=== PATIENT | female | born 1955 | race Caucasian/White ===

== ENCOUNTER → 2018-04-27 | Outpatient (CLI) | payer OTHER ==
[~2018-04-27] MED LIST: ANASTROZOLE1 M1 PO; B121000 MCG/1 IM; BUSPAR15 MG PO; CITALOPRAM HYDR40 MG PO; DIALYVITE V5000 UNIT PO; ELIQUIS5 M1 PO; OMEPRAZOLE40 MG PO; VENTOLIN 02.5 MG/3 M INH; ZESTORETIC 10-1 EACH PO
== END | disposition home or self-care (01) ==
LOC: RAD 10:48
DX: Z13.820 Encounter for screening for osteoporosis (principal); Z90.710 Acquired absence of both cervix and uterus; Z78.0 Asymptomatic menopausal state

== ENCOUNTER → 2018-05-14 | Outpatient (CLI) | payer OTHER | END | disposition home or self-care (01) | LOC: NM 09:48 | DX: M47.817 Spondylosis without myelopathy or radiculopathy, lumbosacral region (principal); M19.012 Primary osteoarthritis, left shoulder; M19.011 Primary osteoarthritis, right shoulder; M19.072 Primary osteoarthritis, left ankle and foot; M19.071 Primary osteoarthritis, right ankle and foot; M17.0 Bilateral primary osteoarthritis of knee; J44.9 Chronic obstructive pulmonary disease, unspecified; I10 Essential (primary) hypertension; M48.00 Spinal stenosis, site unspecified; C50.211 Malignant neoplasm of upper-inner quadrant of right female breast; I82.409 Acute embolism and thrombosis of unspecified deep veins of unspecified lower extremity; F32.9 Major depressive disorder, single episode, unspecified; I26.99 Other pulmonary embolism without acute cor pulmonale ==

== ENCOUNTER → 2018-07-01 | Day surgery (SDC) | payer OTHER ==
[~2018-07-01] VITALS: Ht 170.1 cm; Wt 134.3 kg
--- NOTE | ~2018-07-01 | O ---
[place], [place] OPERATIVE NOTE NAME: JOSE LUIS OBRIEN UNIT #: [id number] ROOM: DOCTOR: JEREL BRENNER MD BIRTHDATE: [birth year] DOS: 07/01/2018 GASTROENDOSCOPIC REPORT HISTORY OF PRESENT ILLNESS: The patient has presented with history of breast cancer, history of colonic polyp in the past, past medical history also associated COPD. ALLERGIES: IVP DYE, SHELLFISH. FAMILY HISTORY: Noncontributory. PAST SURGICAL HISTORY: Carpal tunnel, right breast and hysterectomy. PAST MEDICAL HISTORY: Pulmonary embolism, breast CA, hypertension, obesity. SOCIAL HISTORY: Active smoker. PROCEDURE: Today's procedure part of investigation is colonoscopy plus piecemeal polypectomy. PREMEDICATION: Propofol. SCOPE: Olympus forward-viewing colonoscope 10L video. REPORT: After putting the patient in left lateral position and application of lubricant to the scope, the scope was introduced. Thereafter, under direct visualization, I advanced through the length of colon without difficulty. Base of the cecum explored, appendiceal orifice was identified. Ileocecal valve was defined. Scope was gradually withdrawn from ascending, transverse, and descending colon. In the sigmoid colon, a sessile polyp with lesion, piecemeal polypectomy removed. No active pathology otherwise identified. The patient extubated, tolerated the procedure well. IMPRESSION: Sessile colonic polyp, sigmoid colon, status post piecemeal polypectomy. PLAN AND DISCUSSION: High fiber diet. The patient was advised to abstain from smoking. The patient to follow up with you routinely in the office, p.r.n. visit with us in [facility]. Thank you very much indeed. [place], [place] OPERATIVE NOTE NAME: JOSE LUIS OBRIEN UNIT #: [id number] ROOM: DOCTOR: JEREL BRENNER MD BIRTHDATE: [birth year] JEREL BRENNER MD CM:OPRECORD:OPERATIVE NOTE 6 JEREL BRENNER MD 07/01/18946 interface
[2018-07-01 08:15] VITALS: BP 95/60
[2018-07-01 09:10] VITALS: BP 102/48
[2018-07-01 09:25] VITALS: BP 104/56
[2018-07-01 09:30] VITALS: BP 98/53
== END | disposition home or self-care (01) ==
LOC: SDC 06-29 08:45
DX: K63.5 Polyp of colon (principal); I10 Essential (primary) hypertension; E11.9 Type 2 diabetes mellitus without complications; J43.9 Emphysema, unspecified; F41.9 Anxiety disorder, unspecified; F32.9 Major depressive disorder, single episode, unspecified; G47.30 Sleep apnea, unspecified; F17.210 Nicotine dependence, cigarettes, uncomplicated; E66.01 Morbid (severe) obesity due to excess calories; Z68.42 Body mass index [BMI] 45.0-49.9, adult; Z91.041 Radiographic dye allergy status; Z91.011 Allergy to milk products; Z91.013 Allergy to seafood; Z88.3 Allergy status to other anti-infective agents; Z90.710 Acquired absence of both cervix and uterus; Z98.890 Other specified postprocedural states; Z86.711 Personal history of pulmonary embolism; Z85.3 Personal history of malignant neoplasm of breast; Z86.010 Personal history of colon polyps; Z79.01 Long term (current) use of anticoagulants; Z79.899 Other long term (current) drug therapy; Z82.49 Family history of ischemic heart disease and other diseases of the circulatory system

== ENCOUNTER → 2019-04-29 | Outpatient (CLI) | payer OTHER | END | disposition home or self-care (01) | LOC: MAMMO 04-21 09:00 | DX: C50.211 Malignant neoplasm of upper-inner quadrant of right female breast (principal); I82.409 Acute embolism and thrombosis of unspecified deep veins of unspecified lower extremity; I26.99 Other pulmonary embolism without acute cor pulmonale; Z79.811 Long term (current) use of aromatase inhibitors; Z79.01 Long term (current) use of anticoagulants ==

== ENCOUNTER → 2019-06-25 | Outpatient (CLI) | payer OTHER | END | disposition home or self-care (01) | LOC: CT 11:00 | DX: I26.99 Other pulmonary embolism without acute cor pulmonale (principal); C50.211 Malignant neoplasm of upper-inner quadrant of right female breast; I82.409 Acute embolism and thrombosis of unspecified deep veins of unspecified lower extremity; I25.10 Atherosclerotic heart disease of native coronary artery without angina pectoris; Z79.811 Long term (current) use of aromatase inhibitors; Z79.01 Long term (current) use of anticoagulants ==

== ENCOUNTER → 2020-05-09 | Outpatient (CLI) | payer OTHER ==
[2020-05-09 14:53] LABS: BILIRUBIN Negative (Negative); BLOOD Trace-Lysed (Negative); CLARITY Cloudy (Clear); COLOR Yellow (Yellow); GLUCOSE Negative (Negative); KETONE Trace (Negative); LEUKO ESTERASE Negative (Negative); NITRITE Negative (Negative); PH 5.5 (4.5-8.0)
[2020-05-09 14:54] LABS: BASO # 0.1 10*3/uL (0.0-0.1); BASO % 0.9 % (0.0-1.0); EOS # 0.4 10*3/uL (0.0-0.4); EOS % 3.8 % (1.0-4.0); LYMPH % 19.2 % (27.0-41.0); MEAN CELL VOLUME 90.6 fl (81.0-99.0); MEAN CORPUSCULAR HGB 30.3 pg (27.0-31.0); MEAN CORPUSCULAR HGB CONC 33.4 g/dl (33.0-37.0); MEAN PLATELET VOLUME 8.3 fl (9.6-12.3); MONO # 0.9 10*3/uL (0.1-1.0); MONO % 9.3 % (3.0-9.0); NEUT # 6.8 10*3/uL (2.3-7.9); NEUT % 66.5 % (47.0-73.0); PLATELET COUNT AUTOMATED 302 10*3/uL (130-400); RED BLOOD COUNT 5.19 10*6/uL (4.10-5.10); RETICULOCYTE % 1.18 % (0.50-2.50); WHITE BLOOD COUNT 10.2 10*3/uL (4.8-10.8)
[2020-05-09 14:58] LABS: BACTERIA 2+
[2020-05-09 15:23] LABS: ALBUMIN 3.5 gm/dl (3.1-4.5); ALKALINE PHOSPHATASE 141 U/L (45-117); BUN 18 mg/dl (7-24); CHLORIDE 108 mmol/L (98-107); CHOLESTEROL 222 mg/dL (<200); CPK 84 U/L (26-192); CREATININE 0.95 mg/dL (0.55-1.02); GAMMA GLUTAMYL TRANSPEPTIDASE 23 U/L (5-55); HDL CHOLESTEROL 47 mg/dl (40-60); IRON 50 ug/dL (50-170); LDL CHOLESTEROL 150 mg/dL (9-159); POTASSIUM 4.2 mmol/L (3.5-5.1); SGOT/AST 8 IU/L (3-35); SGPT/ALT 21 U/L (12-78); SODIUM 139 mmol/L (136-145); TOTAL IRON BINDING CAPACITY 343 ug/dl (250-450); TOTAL PROTEIN 7.4 gm/dL (6.4-8.2); TRIGLYCERIDES 127 mg/dl (<150); VLDL CHOLESTEROL 25 mg/dL (6-40)
[2020-05-09 15:28] LABS: VITAMIN D, 25-HYDROXY 64.9 ng/mL (30-100)
== END | disposition home or self-care (01) ==
LOC: LAB 13:19 → RAD 13:30 → MAMMO 14:00
PROVIDERS: Family Medicine; ATTEND Internal Medicine Hematology & Oncology
DX: I82.409 Acute embolism and thrombosis of unspecified deep veins of unspecified lower extremity (principal); I26.99 Other pulmonary embolism without acute cor pulmonale; R53.83 Other fatigue; R79.89 Other specified abnormal findings of blood chemistry; C50.211 Malignant neoplasm of upper-inner quadrant of right female breast; Z79.811 Long term (current) use of aromatase inhibitors; Z79.01 Long term (current) use of anticoagulants; Z78.0 Asymptomatic menopausal state

== ENCOUNTER → 2020-06-07 | Outpatient (CLI) | payer OTHER | END | disposition home or self-care (01) | LOC: CT 09:47 | PROVIDERS: ATTEND Urology | DX: J98.4 Other disorders of lung (principal); R31.9 Hematuria, unspecified; J44.9 Chronic obstructive pulmonary disease, unspecified; C50.919 Malignant neoplasm of unspecified site of unspecified female breast; M48.00 Spinal stenosis, site unspecified; I10 Essential (primary) hypertension; F32.9 Major depressive disorder, single episode, unspecified; C50.211 Malignant neoplasm of upper-inner quadrant of right female breast; I82.409 Acute embolism and thrombosis of unspecified deep veins of unspecified lower extremity; I26.99 Other pulmonary embolism without acute cor pulmonale; Z79.811 Long term (current) use of aromatase inhibitors; Z79.01 Long term (current) use of anticoagulants; Z78.0 Asymptomatic menopausal state ==

== ENCOUNTER → 2020-12-14 | Outpatient (CLI) | payer OTHER | END | disposition home or self-care (01) | LOC: COVID19 14:54 | PROVIDERS: ATTEND Podiatrist Foot & Ankle Surgery | DX: Z11.52 Encounter for screening for COVID-19 (principal) ==

== ENCOUNTER → 2021-05-16 | Outpatient (CLI) | payer OTHER ==
[2021-05-16 14:20] LABS: BUN 12 mg/dl (7-24); CHLORIDE 106 mmol/L (98-107); CREATININE 0.92 mg/dL (0.55-1.02); POTASSIUM 4.9 mmol/L (3.5-5.1); SODIUM 138 mmol/L (136-145)
== END | disposition home or self-care (01) ==
LOC: LAB 12:27 → MAMMO 13:00
PROVIDERS: Internal Medicine Cardiovascular Disease; ATTEND Internal Medicine
DX: C50.211 Malignant neoplasm of upper-inner quadrant of right female breast (principal); I26.99 Other pulmonary embolism without acute cor pulmonale; Z79.811 Long term (current) use of aromatase inhibitors; Z79.01 Long term (current) use of anticoagulants; Z78.0 Asymptomatic menopausal state; I95.1 Orthostatic hypotension; I82.409 Acute embolism and thrombosis of unspecified deep veins of unspecified lower extremity; I25.10 Atherosclerotic heart disease of native coronary artery without angina pectoris; Z80.3 Family history of malignant neoplasm of breast

== ENCOUNTER → 2021-05-30 | Outpatient (CLI) | payer OTHER ==
[2021-05-30 12:29] LABS: BASO # 0.1 10*3/uL (0.0-0.1); BASO % 0.8 % (0.0-1.0); EOS # 0.3 10*3/uL (0.0-0.4); HEMATOCRIT 43.6 % (37.0-47.0); LYMPH % 24.4 % (27.0-41.0); MEAN CELL VOLUME 93.6 fl (81.0-99.0); MEAN CORPUSCULAR HGB 31.8 pg (27.0-31.0); MEAN CORPUSCULAR HGB CONC 33.9 g/dl (33.0-37.0); MEAN PLATELET VOLUME 8.7 fl (9.6-12.3); MONO # 0.8 10*3/uL (0.1-1.0); NEUT % 60.3 % (47.0-73.0); PLATELET COUNT AUTOMATED 282 10*3/uL (130-400); RED BLOOD COUNT 4.66 10*6/uL (4.10-5.10); RED CELL DISTRI WIDTH 13.6 % (0-14.5); RETICULOCYTE % 1.72 % (0.50-2.50); WHITE BLOOD COUNT 8.3 10*3/uL (4.8-10.8)
[2021-05-30 12:49] LABS: CHLORIDE 109 mmol/L (98-107); POTASSIUM 4.6 mmol/L (3.5-5.1); SODIUM 138 mmol/L (136-145)
[2021-05-30 13:03] LABS: ALKALINE PHOSPHATASE 96 U/L (45-117); BUN 18 mg/dl (7-24); CHOLESTEROL 174 mg/dL (<200); CREATININE 0.86 mg/dL (0.55-1.02); GAMMA GLUTAMYL TRANSPEPTIDASE 29 U/L (5-55); IRON 94 ug/dL (50-170); LDL CHOLESTEROL 87 mg/dL (9-159); SGOT/AST 17 IU/L (3-35); SGPT/ALT 25 U/L (12-78); TOTAL IRON BINDING CAPACITY 300 ug/dl (250-450); TOTAL PROTEIN 7.4 gm/dL (6.4-8.2); TRIGLYCERIDES 215 mg/dl (<150)
[2021-05-30 13:27] LABS: FERRITIN 47.4 ng/mL (10.0-291.0); VITAMIN D, 25-HYDROXY 50.9 ng/mL (30-100)
== END | disposition home or self-care (01) ==
LOC: LAB 11:22
PROVIDERS: ATTEND Family Medicine
DX: J43.9 Emphysema, unspecified (principal); R79.89 Other specified abnormal findings of blood chemistry; R53.83 Other fatigue; E78.5 Hyperlipidemia, unspecified; E55.9 Vitamin D deficiency, unspecified

== ENCOUNTER → 2022-04-24 | Outpatient (CLI) | payer OTHER ==
[2022-04-24 14:34] LABS: BASO # 0.1 10*3/uL (0.0-0.1); EOS # 0.4 10*3/uL (0.0-0.4); EOS % 4.3 % (1.0-4.0); HEMATOCRIT 41.7 % (37.0-47.0); LYMPH # 1.8 10*3/uL (1.3-4.4); LYMPH % 17.8 % (27.0-41.0); MEAN CELL VOLUME 93.7 fl (81.0-99.0); MEAN CORPUSCULAR HGB 31.7 pg (27.0-31.0); MEAN CORPUSCULAR HGB CONC 33.8 g/dl (33.0-37.0); MEAN PLATELET VOLUME 8.7 fl (9.6-12.3); MONO # 0.9 10*3/uL (0.1-1.0); MONO % 8.5 % (3.0-9.0); NEUT # 7.1 10*3/uL (2.3-7.9); PLATELET COUNT AUTOMATED 251 10*3/uL (130-400); RED BLOOD COUNT 4.45 10*6/uL (4.10-5.10); RED CELL DISTRI WIDTH 13.4 % (0-14.5); WHITE BLOOD COUNT 10.4 10*3/uL (4.8-10.8)
[2022-04-24 14:52] LABS: ALKALINE PHOSPHATASE 99 U/L (46-116); BUN 17 mg/dl (9-23); CHLORIDE 109 mmol/L (98-107); CHOLESTEROL 192 mg/dL (<200); GAMMA GLUTAMYL TRANSPEPTIDASE 27 U/L (0-73); LDL CHOLESTEROL 122 mg/dL (9-159); POTASSIUM 4.3 mmol/L (3.4-5.1); SGPT/ALT 19 U/L (10-49); THYROID STIM HORMONE (HS) 2.659 uIU/ml (0.550-4.780); TOTAL PROTEIN 6.4 gm/dL (6.0-8.0); TRIGLYCERIDES 130 mg/dl (<150)
[2022-04-24 15:13] LABS: VITAMIN D, 25-HYDROXY 48.9 ng/mL (30-100)
== END | disposition home or self-care (01) ==
LOC: LAB 00:29 → MAMMO 08:00
PROVIDERS: ATTEND Family Medicine
DX: R92.1 Mammographic calcification found on diagnostic imaging of breast (principal); C50.919 Malignant neoplasm of unspecified site of unspecified female breast; R79.89 Other specified abnormal findings of blood chemistry; R53.83 Other fatigue; E78.5 Hyperlipidemia, unspecified; R74.8 Abnormal levels of other serum enzymes; E55.9 Vitamin D deficiency, unspecified; Z98.890 Other specified postprocedural states

== ENCOUNTER → 2023-07-24 | Outpatient (CLI) | payer OTHER | END | disposition home or self-care (01) | LOC: LAB 18:13 | PROVIDERS: ATTEND Nurse Practitioner Family | DX: R30.0 Dysuria (principal) ==

== ENCOUNTER → 2023-08-29 | Outpatient (CLI) | payer OTHER ==
[2023-08-29 14:07] LABS: BASO # 0.1 10*3/uL (0.0-0.1); BASO % 0.6 % (0.0-1.0); EOS # 0.4 10*3/uL (0.0-0.4); EOS % 4.5 % (1.0-4.0); HEMATOCRIT 42.9 % (37.0-47.0); LYMPH # 1.7 10*3/uL (1.3-4.4); LYMPH % 18.2 % (27.0-41.0); MEAN CELL VOLUME 87.9 fl (81.0-99.0); MEAN CORPUSCULAR HGB 28.5 pg (27.0-31.0); MEAN CORPUSCULAR HGB CONC 32.4 g/dl (33.0-37.0); MEAN PLATELET VOLUME 8.3 fl (9.6-12.3); MONO # 0.7 10*3/uL (0.1-1.0); MONO % 7.5 % (3.0-9.0); NEUT # 6.4 10*3/uL (2.3-7.9); NEUT % 68.9 % (47.0-73.0); PLATELET COUNT AUTOMATED 294 10*3/uL (130-400); RED BLOOD COUNT 4.88 10*6/uL (4.10-5.10); RED CELL DISTRI WIDTH 14.1 % (0-14.5); WHITE BLOOD COUNT 9.3 10*3/uL (4.8-10.8)
[2023-08-29 14:28] LABS: ALKALINE PHOSPHATASE 122 U/L (46-116); BUN 12 mg/dl (9-23); CHLORIDE 107 mmol/L (98-107); CHOLESTEROL 195 mg/dL (<200); LDL CHOLESTEROL 119 mg/dL (9-159); POTASSIUM 4.4 mmol/L (3.4-5.1); SGPT/ALT 15 U/L (5-49); TOTAL PROTEIN 6.7 gm/dL (6.0-8.0); TRIGLYCERIDES 173 mg/dl (<150)
== END | disposition home or self-care (01) ==
LOC: LAB 13:40
PROVIDERS: ATTEND Nurse Practitioner Family
DX: M47.816 Spondylosis without myelopathy or radiculopathy, lumbar region (principal); M41.86 Other forms of scoliosis, lumbar region; M16.0 Bilateral primary osteoarthritis of hip; I10 Essential (primary) hypertension; G89.4 Chronic pain syndrome; Z85.3 Personal history of malignant neoplasm of breast; M25.551 Pain in right hip; R30.0 Dysuria; M25.552 Pain in left hip

== ENCOUNTER → 2023-09-11 | Outpatient (CLI) | payer OTHER | END | disposition home or self-care (01) | LOC: LAB 14:43 | PROVIDERS: ATTEND Nurse Practitioner Family | DX: I10 Essential (primary) hypertension (principal); E78.5 Hyperlipidemia, unspecified; E13.69 Other specified diabetes mellitus with other specified complication; R93.89 Abnormal findings on diagnostic imaging of other specified body structures; Z85.3 Personal history of malignant neoplasm of breast ==

== ENCOUNTER → 2023-09-15 | Outpatient (CLI) | payer OTHER ==
[~2023-09-15] MED LIST changes: +Technetium Tc 99M Medronate 1 KIT KIT IV SCH
== END | disposition home or self-care (01) ==
LOC: NM 01:20
PROVIDERS: ATTEND Nurse Practitioner Family
DX: M25.551 Pain in right hip (principal); R93.89 Abnormal findings on diagnostic imaging of other specified body structures; I10 Essential (primary) hypertension; E11.9 Type 2 diabetes mellitus without complications; M54.50 Low back pain, unspecified

== ENCOUNTER → 2023-09-30 | Outpatient (CLI) | payer OTHER ==
[~2023-09-30] MED LIST changes: -Technetium Tc 99M Medronate 1 KIT KIT IV SCH
== END | disposition home or self-care (01) ==
LOC: MAMMO 15:43
PROVIDERS: ATTEND Nurse Practitioner Family
DX: Z85.3 Personal history of malignant neoplasm of breast (principal)

== ENCOUNTER → 2023-11-14 | Outpatient (CLI) | payer OTHER ==
[2023-11-14 15:06] LABS: BASO # 0.1 10*3/uL (0.0-0.1); BASO % 0.8 % (0.0-1.0); EOS # 0.4 10*3/uL (0.0-0.4); EOS % 4.1 % (1.0-4.0); LYMPH % 21.5 % (27.0-41.0); MEAN CELL VOLUME 89.9 fl (81.0-99.0); MEAN CORPUSCULAR HGB 28.9 pg (27.0-31.0); MEAN CORPUSCULAR HGB CONC 32.2 g/dl (33.0-37.0); MEAN PLATELET VOLUME 8.5 fl (9.6-12.3); MONO # 0.7 10*3/uL (0.1-1.0); MONO % 7.6 % (3.0-9.0); NEUT # 5.9 10*3/uL (2.3-7.9); NEUT % 65.4 % (47.0-73.0); PLATELET COUNT AUTOMATED 305 10*3/uL (130-400); RED BLOOD COUNT 4.56 10*6/uL (4.10-5.10); RED CELL DISTRI WIDTH 14.3 % (0-14.5); WHITE BLOOD COUNT 9.1 10*3/uL (4.8-10.8)
[2023-11-14 15:26] LABS: ALKALINE PHOSPHATASE 119 U/L (46-116); BUN 19 mg/dl (9-23); CHLORIDE 106 mmol/L (98-107); CHOLESTEROL 197 mg/dL (<200); LDL CHOLESTEROL 114 mg/dL (9-159); SGPT/ALT 12 U/L (5-49); TOTAL PROTEIN 6.4 gm/dL (6.0-8.0); TRIGLYCERIDES 224 mg/dl (<150)
== END | disposition home or self-care (01) ==
LOC: LAB 01:10 → RAD 10:00 → LAB 14:00 → RAD 14:00
PROVIDERS: ATTEND Nurse Practitioner Family
DX: Z13.820 Encounter for screening for osteoporosis (principal); I10 Essential (primary) hypertension; G89.4 Chronic pain syndrome; Z85.3 Personal history of malignant neoplasm of breast; Z79.899 Other long term (current) drug therapy; Z78.0 Asymptomatic menopausal state

== ENCOUNTER 2024-01-18 10:28 | Inpatient (IN) | payer OTHER ==
[~2024-01-18] VITALS: Ht 170.2 cm; Wt 124.8 kg
[~2024-01-18 10:28] MED LIST changes: +BELBUCA300 MCG BC; +CITALOPRAM40 MG PO; +ELIQUIS2.5 M1 PO; +GABAPENTIN400 MG PO; +LOPRESSOR50 M1 PO; +OMNICEF300 MG PO; +PLAVIX75 M1 PO; +PREVACID30 M2 PO; +TRULICITY0.75 MG/0. SC; +ZANAFLEX2 M2 PO; +ZESTRIL2.5 MG PO
[2024-01-18 10:35] VITALS: BP 125/44
[2024-01-18 11:07] LABS: BASO % 0.4 % (0.0-1.0); EOS # 0.3 10*3/uL (0.0-0.4); EOS % 2.8 % (1.0-4.0); HEMATOCRIT 40.9 % (37.0-47.0); MEAN CELL VOLUME 90.9 fl (81.0-99.0); MEAN CORPUSCULAR HGB 29.3 pg (27.0-31.0); MEAN CORPUSCULAR HGB CONC 32.3 g/dl (33.0-37.0); MONO # 0.7 10*3/uL (0.1-1.0); MONO % 7.3 % (3.0-9.0); NEUT # 6.8 10*3/uL (2.3-7.9); NEUT % 75.8 % (47.0-73.0); PLATELET COUNT AUTOMATED 343 10*3/uL (130-400); RED CELL DISTRI WIDTH 13.2 % (0-14.5)
[2024-01-18 11:23] LABS: BUN 24 mg/dl (9-23); CHLORIDE 104 mmol/L (98-107); POTASSIUM 3.9 mmol/L (3.4-5.1)
[2024-01-18] MEDS ORDERED: MORPHINE Sulfate 2 MG/ML SYR IV ONE (11:50)
[2024-01-18 13:21] LABS: BILIRUBIN Negative (Negative); BLOOD 3+ (Negative); CLARITY Turbid (Clear); COLOR Orange (Yellow); GLUCOSE Negative (Negative); KETONE 1+ (Negative); LEUKO ESTERASE 1+ (Negative); NITRITE Negative (Negative); PH 5.5 (4.5-8.0); SPECIFIC GRAVITY >= 1.030 (1.001-1.030)
[2024-01-18] MEDS ORDERED: Ceftriaxone Sodium 1 GM/10 ML SYR IV ONE (13:25)
[2024-01-18 13:29] LABS: BACTERIA 1+; RBC 41-50 rbc/hpf (0-2)
[2024-01-18 13:30] LABS: EPITHELIAL CELLS 21-30
[2024-01-18] MEDS ORDERED: ACETAMINOPHEN 325 MG TAB PO PRN (14:00)
[2024-01-18] MEDS ORDERED: BISACODYL 5 MG TAB PO PRN (14:00)
[2024-01-18] MEDS ORDERED: Magnesium Hydroxide 30 ML UDC PO PRN (14:00)
[2024-01-18] MEDS ORDERED: Ondansetron Hydrochloride 4 MG/2 ML VIAL IV PRN (14:00)
[2024-01-18 14:12] VITALS: BP 118/57
[2024-01-18] MEDS ORDERED: Acetaminophen/Hydrocodone 5 MG/325 MG TABLET PO PRN (14:50)
[2024-01-18] MEDS ORDERED: DEXTROSE 10 % IN WATER 250 ML IV PRN (18:35)
[2024-01-18 21:31] VITALS: BP 121/64
[2024-01-18] MEDS ORDERED: INSULIN LISPRO 1 UNIT/0.01 ML SQ SCH (22:00)
[2024-01-18 23:57] VITALS: BP 128/77
[2024-01-19 05:32] LABS: BUN 21 mg/dl (9-23); CHLORIDE 104 mmol/L (98-107); FREE T4 1.26 ng/dl (0.89-1.76); POTASSIUM 3.5 mmol/L (3.4-5.1)
[2024-01-19 05:44] VITALS: BP 111/63
[2024-01-19] MEDS ORDERED: Pantoprazole Sodium 40 MG TAB PO SCH (06:00)
[2024-01-19 06:13] LABS: BASO % 0.5 % (0.0-1.0); EOS # 0.2 10*3/uL (0.0-0.4); EOS % 2.5 % (1.0-4.0); HEMATOCRIT 39.6 % (37.0-47.0); MEAN CELL VOLUME 91.7 fl (81.0-99.0); MEAN CORPUSCULAR HGB 29.9 pg (27.0-31.0); MEAN CORPUSCULAR HGB CONC 32.6 g/dl (33.0-37.0); MEAN PLATELET VOLUME 8.3 fl (9.6-12.3); MONO # 0.7 10*3/uL (0.1-1.0); MONO % 8.7 % (3.0-9.0); NEUT # 6.2 10*3/uL (2.3-7.9); NEUT % 72.5 % (47.0-73.0); PLATELET COUNT AUTOMATED 350 10*3/uL (130-400); RED BLOOD COUNT 4.32 10*6/uL (4.10-5.10); RED CELL DISTRI WIDTH 13.2 % (0-14.5); WHITE BLOOD COUNT 8.5 10*3/uL (4.8-10.8)
[2024-01-19 08:00] VITALS: BP 120/70
[2024-01-19] MEDS ORDERED: TIZANIDINE HYDROCHLORIDE 2 MG PO PRN (09:15)
[2024-01-19] MEDS ORDERED: CITALOPRAM 20 MG TAB PO SCH (10:00)
[2024-01-19] MEDS ORDERED: LISINOPRIL 2.5 MG TAB PO SCH (10:00)
[2024-01-19] MEDS ORDERED: Metoprolol Tartrate 50 MG TAB PO SCH (10:00)
[2024-01-19] MEDS ORDERED: APIXABAN 5 MG TAB PO SCH (10:00)
[2024-01-19] MEDS ORDERED: Clopidogrel Hydrogen Sulfate 75 MG TAB PO SCH (10:00)
[2024-01-19] MEDS ORDERED: Ceftriaxone Sodium 1 GM in SYRINGE INFUSION 10 ML IV SCH (13:00)
[2024-01-19] MEDS ORDERED: GABAPENTIN 400 MG CAP PO SCH (14:00)
[2024-01-19 16:17] VITALS: BP 117/66
[2024-01-19 20:00] VITALS: BP 136/75
[2024-01-19 20:15] VITALS: BP 107/71
[2024-01-19 20:45] VITALS: BP 136/75
[2024-01-19] MEDS ORDERED: MICONAZOLE NITRATE 2% 75 GM BOT T SCH (22:00)
[2024-01-19] MEDS ORDERED: MED. FROM HOME 1 EACH EA BC SCH (22:00)
[2024-01-20] VITALS: BP 140/80
[2024-01-20 08:00] VITALS: BP 185/57
[2024-01-20 12:00] VITALS: BP 132/73
[2024-01-20] MEDS ORDERED: AMMONIUM LACTATE 12% LOTION T SCH (13:10)
[2024-01-20 16:00] VITALS: BP 121/80
[2024-01-20 20:00] VITALS: BP 121/55
[2024-01-21] VITALS: BP 154/76
[2024-01-21 08:00] VITALS: BP 125/67
[2024-01-21] MEDS ORDERED: LIDOCAINE 1 EA PATCH T SCH (10:00)
[2024-01-21] MEDS ORDERED: DICLOFENAC SODIUM 100 GM TUBE T SCH (10:00)
[2024-01-21 12:00] VITALS: BP 117/69
[2024-01-21] MEDS ORDERED: GABAPENTIN 300 MG CAP PO SCH (14:00)
[2024-01-21] MEDS ORDERED: VOLTAREN ARTHRI20 GM T (15:13)
[2024-01-21] MEDS ORDERED: ANTIFUNGAL POWD85 G1 T (15:13)
[2024-01-21] MEDS ORDERED: BACITRACIN28.4 GM T (15:13)
[2024-01-21 16:00] VITALS: BP 141/79
[2024-01-21] MEDS ORDERED: ADHESIVE BANDAGE 1 EACH BANDAGE T ONE (17:25)
[2024-01-23] MEDS ORDERED: Bacitracin Zinc 14 GM TUBE T SCH (10:00)
== END 2024-01-21 17:52 | DRG 689 ==
LOC: ED 10:28 → EDHOLD 13:49 → 4E 01-19 16:44
PROVIDERS: ADMIT Internal Medicine; ATTEND Internal Medicine
PROC: 0HBRXZZ Excision of Toe Nail, External Approach (ICD-10-PCS; 2024-01-19)
PROC: 0HBRXZZ Excision of Toe Nail, External Approach (ICD-10-PCS; 2024-01-19)
PROC: 0HBRXZZ Excision of Toe Nail, External Approach (ICD-10-PCS; 2024-01-19)
PROC: 0HBRXZZ Excision of Toe Nail, External Approach (ICD-10-PCS; 2024-01-19)
PROC: 0HBRXZZ Excision of Toe Nail, External Approach (ICD-10-PCS; 2024-01-19)
PROC: 0HBRXZZ Excision of Toe Nail, External Approach (ICD-10-PCS; 2024-01-19)
PROC: 0HBRXZZ Excision of Toe Nail, External Approach (ICD-10-PCS; 2024-01-19)
PROC: 0HBRXZZ Excision of Toe Nail, External Approach (ICD-10-PCS; 2024-01-19)
PROC: 0HBRXZZ Excision of Toe Nail, External Approach (ICD-10-PCS; 2024-01-19)
PROC: 0HBRXZZ Excision of Toe Nail, External Approach (ICD-10-PCS; 2024-01-19)
PROC: 0HBLXZZ Excision of Left Lower Leg Skin, External Approach (ICD-10-PCS; principal; 2024-01-21)
DX: N30.00 Acute cystitis without hematuria (principal); G93.41 Metabolic encephalopathy; I48.11 Longstanding persistent atrial fibrillation; L03.116 Cellulitis of left lower limb; Z68.41 Body mass index [BMI] 40.0-44.9, adult; E11.40 Type 2 diabetes mellitus with diabetic neuropathy, unspecified; R62.7 Adult failure to thrive; R26.2 Difficulty in walking, not elsewhere classified; I10 Essential (primary) hypertension; J44.9 Chronic obstructive pulmonary disease, unspecified; I25.10 Atherosclerotic heart disease of native coronary artery without angina pectoris; Z95.5 Presence of coronary angioplasty implant and graft; Z91.041 Radiographic dye allergy status; Q84.5 Enlarged and hypertrophic nails; Z91.013 Allergy to seafood; Z79.899 Other long term (current) drug therapy

== ENCOUNTER 2024-03-18 09:39 | Inpatient (IN) | payer OTHER ==
[~2024-03-18] VITALS: Ht 170.1 cm; Wt 125.2 kg
[~2024-03-18 09:39] MED LIST changes: +ANTIFUNGAL POWD85 G1 T; +BACITRACIN28.4 GM T; +VOLTAREN ARTHRI20 GM T
[2024-03-18 09:48] VITALS: BP 138/63
[2024-03-18] MEDS ORDERED: LORazepam 1 MG TAB PO ONE (09:55)
[2024-03-18 10:09] LABS: BASO # 0.1 10*3/uL (0.0-0.1); BASO % 0.8 % (0.0-1.0); EOS # 0.2 10*3/uL (0.0-0.4); MEAN CELL VOLUME 88.9 fl (81.0-99.0); MEAN CORPUSCULAR HGB 28.7 pg (27.0-31.0); MEAN CORPUSCULAR HGB CONC 32.3 g/dl (33.0-37.0); MEAN PLATELET VOLUME 8.1 fl (9.6-12.3); MONO # 0.7 10*3/uL (0.1-1.0); MONO % 7.7 % (3.0-9.0); NEUT # 6.7 10*3/uL (2.3-7.9); NEUT % 75.9 % (47.0-73.0); PLATELET COUNT AUTOMATED 279 10*3/uL (130-400); RED CELL DISTRI WIDTH 13.9 % (0-14.5); WHITE BLOOD COUNT 8.8 10*3/uL (4.8-10.8)
[2024-03-18 10:31] LABS: BUN 14 mg/dl (9-23); CHLORIDE 104 mmol/L (98-107); POTASSIUM 3.8 mmol/L (3.4-5.1)
[2024-03-18 10:38] LABS: ACT PARTIAL THROMBO TIME 27.9 SECONDS (20.0-32.1)
[2024-03-18] MEDS ORDERED: VISTARIL25 MG PO (13:21)
[2024-03-18] MEDS ORDERED: BISACODYL 10 MG SUPP R PRN (15:45)
[2024-03-18] MEDS ORDERED: Magnesium Hydroxide 30 ML UDC PO PRN (15:45)
[2024-03-18] MEDS ORDERED: ACETAMINOPHEN 325 MG TAB PO PRN (15:45)
[2024-03-18] MEDS ORDERED: ACETAMINOPHEN 650 MG SUPP R PRN (15:45)
[2024-03-18] MEDS ORDERED: Acetaminophen/Hydrocodone 5 MG/325 MG TABLET PO PRN (15:45)
[2024-03-18] MEDS ORDERED: DEXTROSE 10 % IN WATER 250 ML IV PRN (15:45)
[2024-03-18] MEDS ORDERED: BISACODYL 5 MG TAB PO PRN (15:45)
[2024-03-18] MEDS ORDERED: Ondansetron Hydrochloride 4 MG/2 ML VIAL IV PRN (15:45)
[2024-03-18] MEDS ORDERED: OZEMPIC0.25 MG/03 SQ (16:08)
[2024-03-18] MEDS ORDERED: INSULIN LISPRO 1 UNIT/0.01 ML SQ SCH (16:30)
[2024-03-18 16:43] LABS: BILIRUBIN Negative (Negative); BLOOD Negative (Negative); CLARITY Cloudy (Clear); COLOR Yellow (Yellow); GLUCOSE Negative (Negative); KETONE Trace (Negative); LEUKO ESTERASE Negative (Negative); NITRITE Negative (Negative); PH 7.5 (4.5-8.0); SPECIFIC GRAVITY 1.015 (1.001-1.030); UROBILINOGEN 0.2 E.U./dl (0.0-1.0)
[2024-03-18 17:02] LABS: BACTERIA 1+; EPITHELIAL CELLS 21-30; FINE GRANULAR CAST 0-2; MUCOUS 1+; RBC 0-2 rbc/hpf (0-2)
[2024-03-18 18:36] VITALS: BP 148/69
[2024-03-18 21:03] VITALS: BP 140/83
[2024-03-18 21:50] VITALS: BP 150/74
[2024-03-18] MEDS ORDERED: APIXABAN 2.5 MG TABLET PO SCH (22:00)
[2024-03-19] VITALS: BP 148/70
[2024-03-19 06:08] LABS: ALKALINE PHOSPHATASE 113 U/L (46-116); BUN 13 mg/dl (9-23); CHLORIDE 102 mmol/L (98-107); POTASSIUM 3.7 mmol/L (3.4-5.1); SGPT/ALT 11 U/L (5-49); TOTAL PROTEIN 7.6 gm/dL (6.0-8.0)
[2024-03-19 06:19] LABS: BASO # 0.1 10*3/uL (0.0-0.1); BASO % 0.6 % (0.0-1.0); EOS # 0.1 10*3/uL (0.0-0.4); EOS % 0.7 % (1.0-4.0); HEMATOCRIT 44.2 % (37.0-47.0); MEAN CELL VOLUME 87.7 fl (81.0-99.0); MEAN PLATELET VOLUME 8.8 fl (9.6-12.3); MONO % 7.8 % (3.0-9.0); NEUT % 75.4 % (47.0-73.0); PLATELET COUNT AUTOMATED 306 10*3/uL (130-400); RED BLOOD COUNT 5.04 10*6/uL (4.10-5.10); RED CELL DISTRI WIDTH 13.7 % (0-14.5); WHITE BLOOD COUNT 13.3 10*3/uL (4.8-10.8)
[2024-03-19 08:00] VITALS: BP 122/90
[2024-03-19] MEDS ORDERED: Metoprolol Tartrate 50 MG TAB PO SCH (10:00)
[2024-03-19] MEDS ORDERED: Clopidogrel Hydrogen Sulfate 75 MG TAB PO SCH (10:00)
[2024-03-19] MEDS ORDERED: BUPRENORPHINE 300 MCG PO SCH (10:00)
[2024-03-19] MEDS ORDERED: LISINOPRIL 2.5 MG TAB PO SCH (10:00)
[2024-03-19] MEDS ORDERED: CITALOPRAM 20 MG TAB PO SCH (10:00)
[2024-03-19 12:00] VITALS: BP 163/74
[2024-03-19] MEDS ORDERED: GABAPENTIN 400 MG CAP PO SCH (14:00)
[2024-03-19 17:05] VITALS: BP 144/75
[2024-03-19 20:00] VITALS: BP 156/61
[2024-03-19] MEDS ORDERED: NYSTATIN 15 GM BOT T SCH (22:00)
[2024-03-20] VITALS: BP 154/58
[2024-03-20 08:00] VITALS: BP 150/78
[2024-03-20 12:00] VITALS: BP 145/75
[2024-03-20 16:00] VITALS: BP 140/59
[2024-03-20 20:00] VITALS: BP 143/55
[2024-03-21] VITALS: BP 142/81
[2024-03-21 06:49] LABS: BASO # 0.1 10*3/uL (0.0-0.1); EOS # 0.3 10*3/uL (0.0-0.4); EOS % 3.5 % (1.0-4.0); HEMATOCRIT 39.7 % (37.0-47.0); MEAN CELL VOLUME 87.8 fl (81.0-99.0); MEAN CORPUSCULAR HGB 28.3 pg (27.0-31.0); MEAN CORPUSCULAR HGB CONC 32.2 g/dl (33.0-37.0); MEAN PLATELET VOLUME 8.4 fl (9.6-12.3); MONO # 0.7 10*3/uL (0.1-1.0); MONO % 9.4 % (3.0-9.0); NEUT # 4.6 10*3/uL (2.3-7.9); NEUT % 62.3 % (47.0-73.0); PLATELET COUNT AUTOMATED 268 10*3/uL (130-400); RED BLOOD COUNT 4.52 10*6/uL (4.10-5.10); RED CELL DISTRI WIDTH 13.9 % (0-14.5); WHITE BLOOD COUNT 7.4 10*3/uL (4.8-10.8)
[2024-03-21 07:11] LABS: BUN 23 mg/dl (9-23); CHLORIDE 105 mmol/L (98-107); POTASSIUM 3.5 mmol/L (3.4-5.1)
[2024-03-21 08:00] VITALS: BP 137/69
[2024-03-21 12:00] VITALS: BP 148/73
[2024-03-21 16:00] VITALS: BP 144/74
[2024-03-21 20:00] VITALS: BP 143/68
[2024-03-22] VITALS: BP 140/59
[2024-03-22 08:00] VITALS: BP 147/64
[2024-03-22 12:00] VITALS: BP 149/79
== END 2024-03-22 17:17 | DRG 206 ==
LOC: ED 09:39 → EDHOLD 12:45 → 4E 15:22
PROVIDERS: Family Medicine; Internal Medicine; Registered Nurse; ADMIT Internal Medicine; ATTEND Internal Medicine
DX: M94.0 Chondrocostal junction syndrome [Tietze] (principal); Z68.41 Body mass index [BMI] 40.0-44.9, adult; J44.9 Chronic obstructive pulmonary disease, unspecified; I48.91 Unspecified atrial fibrillation; E66.9 Obesity, unspecified; F41.9 Anxiety disorder, unspecified; M54.9 Dorsalgia, unspecified; I25.10 Atherosclerotic heart disease of native coronary artery without angina pectoris; E11.9 Type 2 diabetes mellitus without complications; I10 Essential (primary) hypertension; G47.33 Obstructive sleep apnea (adult) (pediatric); F32.A Depression, unspecified; Z88.8 Allergy status to other drugs, medicaments and biological substances; Z91.09 Other allergy status, other than to drugs and biological substances; Z79.899 Other long term (current) drug therapy; Z79.01 Long term (current) use of anticoagulants; Z79.2 Long term (current) use of antibiotics; Z87.891 Personal history of nicotine dependence; Z90.710 Acquired absence of both cervix and uterus; Z90.11 Acquired absence of right breast and nipple; Z82.49 Family history of ischemic heart disease and other diseases of the circulatory system; Z87.440 Personal history of urinary (tract) infections